=== PATIENT | female | born 1935 | race Caucasian/White ===

== ENCOUNTER 2021-07-03 17:22 | Emergency (ER) | payer MEDICARE, BC ==
[~2021-07-03] VITALS: Ht 157.5 cm; Wt 54.0 kg
[~2021-07-03 17:22] MED LIST: ASPIRIN325 MG PO; CALTRATE 600 +1 EAC1 PO; CITRUCEL479 GM PO; CLONIDINE HCL0.1 MG PO; CRESTOR10 MG PO; IBUPROFEN600 MG PO; INDERAL LA80 MG PO; LASIX20 MG PO; LOSARTAN POTASS50 MG PO; NITROGLYCERIN0.4 MG SL; NORCO 5-325 TA1 EACH PO; OXYCODON-ACETA1 EAC2 PO; PEPCID40 MG PO; PERCOCET 5-3251 EACH PO; POTASSIUM CHLO10 ME1 PO; TYLENOL EXTRA500 MG PO; VERAPAMIL ER180 MG PO
[2021-07-03] MEDS ORDERED: METOPROLOL SUCC50 MG PO (17:36)
--- NOTE | 2021-07-05 21:33 | EKG ---
[facility] [address] [facility] [place] [address] Signed Normal sinus rhythm Nonspecific ST abnormality Abnormal ECG When compared with ECG of 24-AUG-2016 01:42, ST now depressed in Lateral leads Nonspecific T wave abnormality no longer evident in Anterior leads Confirmed by ANUP AN DO ([id number]) on 07/05/2021 9:33:10 PM Electronically Signed By: ANUP AN DO 07/05/21 2133 PATIENT NAME: ELMERYUE MIGDALIA Electrocardiogram DATE OF : 39 PHYSICIAN: ANUP AN DO REPORT #: [id number] REPORT IS CONFIDENTIAL AND NOT TO BE RELEASED WITHOUT AUTHORIZATION
== END 2021-07-03 22:12 | disposition home or self-care (01) ==
LOC: ED 17:22
DX: R07.89 Other chest pain (principal); I10 Essential (primary) hypertension; K21.9 Gastro-esophageal reflux disease without esophagitis; E78.5 Hyperlipidemia, unspecified; M19.90 Unspecified osteoarthritis, unspecified site; I67.4 Hypertensive encephalopathy; Z85.820 Personal history of malignant melanoma of skin; Z88.0 Allergy status to penicillin; Z88.8 Allergy status to other drugs, medicaments and biological substances; Z79.82 Long term (current) use of aspirin; Z79.899 Other long term (current) drug therapy
CPT/HCPCS: 71045; 80053; 83735; 84484; 85025; 93005; 93010; 99285-25

== ENCOUNTER 2022-01-05 17:44 | Emergency (ER) | payer MEDICARE, BC ==
[~2022-01-05] VITALS: Ht 157.5 cm; Wt 58.8 kg
[~2022-01-05 17:44] MED LIST changes: +METOPROLOL SUCC50 MG PO
[2022-01-05] MEDS ORDERED: CRESTOR5 MG PO (19:20)
[2022-01-05] MEDS ORDERED: BETAMETHASONE D15 GM TOP (19:21)
[2022-01-05] MEDS ORDERED: TURMERIC500 M2 PO (19:21)
== END 2022-01-05 21:11 | disposition home or self-care (01) ==
LOC: ED 17:44
DX: I10 Essential (primary) hypertension (principal); K21.9 Gastro-esophageal reflux disease without esophagitis; E78.5 Hyperlipidemia, unspecified; M19.90 Unspecified osteoarthritis, unspecified site; Z88.0 Allergy status to penicillin; Z88.8 Allergy status to other drugs, medicaments and biological substances; Z79.899 Other long term (current) drug therapy; Z79.82 Long term (current) use of aspirin
CPT/HCPCS: 99283

== ENCOUNTER 2022-12-09 05:51 | Day surgery (SDC) | payer MEDICARE, BC ==
[~2022-12-09] VITALS: Ht 157.5 cm; Wt 57.7 kg
[~2022-12-09 05:51] MED LIST changes: +BAYER CHEWABLE81 MG PO; +BETAMETHASONE D15 GM TOP; +CRESTOR5 MG PO; +FOSAMAX70 MG PO; +TURMERIC500 M2 PO; +ZESTRIL10 MG PO
--- NOTE | 2022-12-09 07:55 | EKG ---
[facility] [address] [facility] [place] [address] Signed Normal sinus rhythm Nonspecific ST and T wave abnormality Abnormal ECG When compared with ECG of 03-JUL-2021 17:25, Vent. rate has decreased BY 33 BPM Confirmed by TIMO MANCIA MD ([id number]) on 12/09/2022 7:55:03 AM Electronically Signed By: TIMO MANCIA MD 12/09/22 0755 PATIENT NAME: YUE PAYNE Electrocardiogram DATE OF : 39 PHYSICIAN: TIMO MANCIA MD REPORT #: [id number] REPORT IS CONFIDENTIAL AND NOT TO BE RELEASED WITHOUT AUTHORIZATION
[2022-12-09] MEDS ORDERED: ACETAMINOPHEN500 MG PO (08:45)
[2022-12-09] MEDS ORDERED: HYDROCODON-ACE1 EA10 PO (08:45)
--- NOTE | 2022-12-10 11:36 | OR ---
[facility] [address] [place], [place] [address] Signed DATE OF OPERATION: 12/09/2022 SURGEON: Ann Glasgow MD PREOPERATIVE DIAGNOSES: 1. Left subareolar BI-RADS category mass with persistent nipple discharge and inverted nipple. 2. Family history of breast cancer. POSTOPERATIVE DIAGNOSES: 1. Left subareolar BI-RADS category mass with persistent nipple discharge and inverted nipple. 2. Family history of breast cancer. PROCEDURE: Left subareolar partial mastectomy. ANESTHESIA: General, LMA; Ann Stark CRNA INDICATIONS: This 87-year-old white woman has family history of breast cancer (her mother). She has undergone left subareolar breast biopsy by hi in September of 2019 with pathology consistent fibrocystic disease and a focus of atypical ductal hyperplasia. A fibroadenoma 2 mm in size was noted. The patient has had recurrent and persistent nipple discharge. She has persistent left nipple inversion. An MRI of the breast was recently performed in [place], which demonstrated a less than 2 cm mass in the subareolar area. Given her persistent nipple discharge, the mass and her family history, additional excision has been recommended. She understands risk of bleeding, infection, cosmetic deformity, and so forth and wished to proceed. FINDINGS: The nipple was inverted to be sure. Wide and deep excision of the subareolar breast tissue was undertaken though there was no distinct mass that could be defined necessarily. Parenchymal reapproximation was undertaken to minimize the defect. Cosmetic result was good. DESCRIPTION OF PROCEDURE: Electronically Signed By: ANN GLASGOW MD 12/10/22 1136 PATIENT NAME: YUE PAYNE OPERATIVE REPORT DATE OF : 39 REPORT #: [id number] PHYSICIAN: ANN GLASGOW MD PCP: VISHNU SHIELDS MD REPORT IS CONFIDENTIAL AND NOT TO BE RELEASED WITHOUT AUTHORIZATION [facility] [address] [place], [place] [address] Signed The patient was brought to the operating room, given a general LMA type anesthetic. Preoperative antibiotic Ancef was given. Sequential compression device stockings used and heparin subcutaneously administered. The left breast was prepared with a Betadine based solution and draped sterilely. Palpation of the subareolar area did not demonstrate a mass, though she did have an inverted nipple. It was acknowledged that the MRI could not distinguish an inverted nipple from that mass it is noted. The previous incision in the inferior aspect of the mass of the areola on the areolar margin. The same incision was used. An incision was taken through the dermis with a #15 blade. The areolar complex was from the underlying breast tissue. There was some milky cyst-like fluid noted. Wide and deep excision of subareolar breast tissue was undertaken, excising the specimen about 5 x 4 cm x 3 cm in depth. Irrigation was undertaken. Electrocautery used for hemostasis. Parenchymal reapproximation was undertaken to minimize the defect. Nipple-areolar complex appeared to be viable. Deep dermal sutures of 3-0 Vicryl used to approximate the skin initially and a running subcuticular 3-0 Vicryl for the skin additionally. Steri-Strips were applied as was an Acticoat dressing. The patient tolerated the procedure well. Blood loss was minimal. Ann Glasgow MD JM/MODL /[id number] cc: Vishnu Shields MD Copies: VISHNU SHIELDS MD ~ Electronically Signed By: ANN GLASGOW MD 12/10/22 1136 PATIENT NAME: YUE PAYNE OPERATIVE REPORT DATE OF : 39 REPORT #: [id number] PHYSICIAN: ANN GLASGOW MD PCP: VISHNU SHIELDS MD REPORT IS CONFIDENTIAL AND NOT TO BE RELEASED WITHOUT AUTHORIZATION
--- NOTE | 2022-12-11 16:36 | PATH ---
[facility] [address] [place], [place] [address] Signed SPECIMEN(S): A LEFT BREAST SUBAREOLAR MASS SPECIMEN SOURCE: A. LEFT BREAST SUBAREOLAR MASS CLINICAL HISTORY: Left breast subareolar mass. 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 - Negative for in situ or invasive disease. DF:slc:[id number] MICROSCOPIC EXAMINATION: Histologic sections of all submitted blocks are examined by light microscopy. These findings, together with the gross examination, support the pathologic diagnosis. GROSS DESCRIPTION: The specimen, labeled and designated "Janeen Kearney, " and designated on the requisition "lump of the subareolar breast mass (left)," is received in formalin and consists of a 37 g, unoriented portion of yellow-coates fibroadipose tissue, that is 5.6 x 5.1 x 3.4 cm. The specimen is inked blue and serially sectioned perpendicular to the long axis into 11 slices, revealing approximately 80% of the specimen is a yellow-coates, greasy adipose tissue and 20% is a pink, rubbery fibrous tissue with areas of possible calcification. No discrete mass lesion is grossly identified. The specimen is entirely submitted in cassettes (A1-A30). Cassette Summary: (A1) slice one, perpendicular. (A2-A4) slice two. (A5-A7) slice three. (A8-A10) slice four. (A11-A13) slice five. (A14-A16) slice six. (A17-A19) slice seven. (A20-A22) slice eight. (A23-A25) slice nine. PATIENT NAME: YUE KEARNEY PATHOLOGY DATE OF : 39 REPORT #: [id number] PHYSICIAN: [facility] PCP: REDD DE LUNA MD REPORT IS CONFIDENTIAL AND NOT TO BE RELEASED WITHOUT AUTHORIZATION [facility] [address] [place], [place] [address] Signed (A26-A28) slice 10. (A29-A30) slice 11, perpendicular. Cold ischemia time: Insufficient data to calculate. Approximate formalin time: 19 hours. FB (under the direct supervision of a pathologist) The Gross Description was prepared using a voice recognition system. The report was reviewed for accuracy; however, sound-alike word errors, addition and/or deletions may occur. If there is any question about this report, please contact Client Services. PERFORMING LABORATORY: The technical component was performed by [email or web address], [address] [place] [address] (CLIA# [id number]). Professional interpretation was performed by [facility], [facility], [address] [place] [id number] (CLIA#: [id number]) Diagnostician: Brijesh Soto DO Pathologist Electronically Signed 12/11/2022 Copies: ~ PATIENT NAME: YUE KEARNEY PATHOLOGY DATE OF : 39 REPORT #: [id number] PHYSICIAN: [facility] PCP: REDD DE LUNA MD REPORT IS CONFIDENTIAL AND NOT TO BE RELEASED WITHOUT AUTHORIZATION
== END 2022-12-09 10:30 | disposition home or self-care (01) ==
LOC: DS 05:51
PROVIDERS: ATTEND Surgery
PROC: 0HBU0ZZ Excision of Left Breast, Open Approach (ICD-10-PCS; principal; 2022-12-09 07:30)
DX: N64.89 Other specified disorders of breast (principal); Z85.3 Personal history of malignant neoplasm of breast; N64.59 Other signs and symptoms in breast
CPT/HCPCS: 93005; 93010; A9270; J0690; J1100; J1644; J1885; J2405; J2704; J2765; J3010; J7121

== ENCOUNTER 2024-02-18 06:57 | Emergency (ER) | payer MEDICARE, BC ==
[~2024-02-18] VITALS: Ht 157.5 cm; Wt 64.8 kg
[~2024-02-18 06:57] MED LIST changes: +ACETAMINOPHEN500 MG PO; +HYDROCODON-ACE1 EA10 PO
[2024-02-18 07:53] LABS: BILIRUBIN, URINE NEGATIVE (negative); BLOOD/HGB, URINE NEGATIVE (Negative); KETONE, URINE NEGATIVE (Negative); LEUK ESTERASE, URINE TRACE (negative); NITRITE, URINE NEGATIVE (negative); PH, URINE 6.5 (5-7)
[2024-02-18 07:54] LABS: BASOPHILS 0.6 % (0-2); EOSINOPHILS 1.2 % (0-6); HEMATOCRIT 41.4 % (35.0-50.0); HEMOGLOBIN 13.7 g/dL (12.0-18.0); LYMPHOCYTES 33.8 % (24-44); MCH 30.9 (27-36); MCV 93.7 fl (81-99); MONOCYTES 8.8 % (0-12); NEUTROPHILS 55.6 % (39-80); PLATELET COUNT 237 K/uL (140-440); RBC 4.42 M/ul (4.3-5.7); RDW 13.3 (10.5-15.0)
[2024-02-18 07:59] LABS: BACTERIA, URINE NONE SEEN /hpf (negative); CASTS, URINE NONE SEEN \\lpf; COLLECTION TYPE, URINE CLEAN CATCH; CRYSTALS, URINE NONE SEEN (0-1+); EPITHELIAL CELLS, URINE 0 /lpf (0-1+); RED BLOOD CELLS, URINE 0-1 /hpf (0-5); REFLEX CULTURE, URINE No (No)
[2024-02-18 08:12] LABS: ALBUMIN 3.8 g/dL (3.4-5.0); ALBUMIN/GLOBULIN RATIO 1.12 (1.1-2.4); ANION GAP 16.2 (7-21); BILIRUBIN, TOTAL 0.5 ng/dL (0.2-1.0); BUN/CREATININE RATIO 21.97 (6.0-28.6); CALCIUM 8.5 mg/dL (8.5-10.1); CREATININE, SERUM 0.91 mg/dL (0.55-1.02); POTASSIUM 4.2 mmol/L (3.5-5.1); PROTEIN, TOTAL 7.2 g/dL (6.4-8.2)
[2024-02-18] MEDS ORDERED: ACETAMINOPHEN 325 MG TAB PO ONE (10:30)
[2024-02-18] MEDS ORDERED: PROCHLORPERAZINE EDISYLATE 10 MG/2 ML VIAL IV ONE (10:45)
[2024-02-18] MEDS ORDERED: SODIUM CHLORIDE 0.45% 1,000 ML IV ONE (11:00)
[2024-02-18] MEDS ORDERED: SODIUM CHLORIDE 0.9% 1,000 ML IV PRN (11:00)
[2024-02-18] MEDS ORDERED: PANTOPRAZOLE SODIUM 40 MG/10 ML VIAL IV ONE (11:00)
[2024-02-18 11:12] VITALS: BP 139/68
== END 2024-02-18 11:13 | disposition home or self-care (01) ==
LOC: ED 06:57
PROVIDERS: Emergency Medicine
DX: R10.32 Left lower quadrant pain (principal); I10 Essential (primary) hypertension; I70.1 Atherosclerosis of renal artery; Z95.828 Presence of other vascular implants and grafts
CPT/HCPCS: 36415; 75635; 80053; 81001; 85025; A9270; Q9967

== ENCOUNTER 2024-12-06 23:05 | Emergency (ER) | payer MEDICARE, BC ==
[~2024-12-06] VITALS: Ht 157.5 cm; Wt 70.0 kg
[2024-12-06] MEDS ORDERED: FLUCONAZOLE150 MG PO (23:23)
[2024-12-06] MEDS ORDERED: CITALOPRAM HBR20 MG PO (23:24)
[2024-12-06] MEDS ORDERED: PANTOPRAZOLE SO40 MG PO (23:25)
[2024-12-06] MEDS ORDERED: ENALAPRILAT DIHYDRATE 1.25 MG/ML VIAL IV ONE (23:30)
[2024-12-06 23:45] LABS: ALBUMIN/GLOBULIN RATIO 1.33 (1.1-2.4); ANION GAP 13.6 (7-21); BILIRUBIN, TOTAL 0.3 mg/dL (0.2-1.0); BUN/CREATININE RATIO 20.58 (6.0-28.6); CALCIUM 9.4 mg/dL (8.5-10.1); CREATININE, SERUM 0.68 mg/dL (0.55-1.02); MAGNESIUM 1.8 mg/dL (1.8-2.4); POTASSIUM 3.6 mmol/L (3.5-5.1)
[2024-12-07 00:16] LABS: BASOPHILS 0.5 % (0-2); EOSINOPHILS 2.3 % (0-6); HEMATOCRIT 39.8 % (35.0-50.0); HEMOGLOBIN 13.6 g/dL (12.0-18.0); LYMPHOCYTES 42.4 % (24-44); MCH 31.1 (27-36); MCHC 34.1 g/dl (30-36); MCV 91.1 fl (81-99); MONOCYTES 9.8 % (0-12); PLATELET COUNT 235 K/uL (140-440); RBC 4.37 M/ul (4.3-5.7); RDW 14.1 (10.5-15.0)
[2024-12-07] MEDS ORDERED: LISINOPRIL20 MG PO (00:23)
[2024-12-07 00:37] VITALS: BP 171/65
--- NOTE | 2024-12-07 22:48 | EKG ---
[facility] [address] [facility] [place] [address] Signed Normal sinus rhythm Nonspecific T wave abnormality Abnormal ECG When compared with ECG of 09-DEC-2022 04:58, T wave inversion now evident in Lateral leads QT has lengthened Confirmed by Shannon Montes MD () on 12/07/2024 10:48:44 PM Electronically Signed By: SHANNON MONTES MD 12/07/24 2248 PATIENT NAME: YUE PAYNE Electrocardiogram DATE OF : 39 PHYSICIAN: SHANNON MONTES MD REPORT #: [id number] REPORT IS CONFIDENTIAL AND NOT TO BE RELEASED WITHOUT AUTHORIZATION
== END 2024-12-07 00:39 | disposition home or self-care (01) ==
LOC: ED 23:05
PROVIDERS: Family Medicine
DX: I10 Essential (primary) hypertension (principal); E78.5 Hyperlipidemia, unspecified; K21.9 Gastro-esophageal reflux disease without esophagitis; Z88.0 Allergy status to penicillin; Z88.8 Allergy status to other drugs, medicaments and biological substances; Z79.82 Long term (current) use of aspirin; Z79.83 Long term (current) use of bisphosphonates; Z79.899 Other long term (current) drug therapy
CPT/HCPCS: 36415; 80053; 83735; 84484; 85025; 93005; 93010; 96374; 99284-25